=== PATIENT | female | born 1975 | race Two or more races ===

== ENCOUNTER → 2017-07-17 | Outpatient (CLI) | payer BC ==
--- NOTE | 2017-07-17 10:14 | US ---
EXAMINATION TYPE: US abdomen comp/pelvis limited DATE OF EXAM: 07/17/2017 COMPARISON: NONE CLINICAL HISTORY: R10.9 abd pain. Right sided pain, hematuria EXAM MEASUREMENTS: Liver Length: 14.8 cm Gallbladder Wall: 0.1 cm CBD: 0.5 cm Spleen: 10.3 cm Right Kidney: 9.8 x 4.7 x 5.7 cm Left Kidney: 11.0 x 4.6 x 4.3 cm Pancreas: Obscured by bowel gas Liver: Hyperechoic, slightly heterogeneous area visualized in the right lobe near the hepatic veins measuring 4.4 x 3.5 x 4.1 cm Gallbladder: wnl CBD: wnl Spleen: wnl Right Kidney: No hydronephrosis or masses seen Left Kidney: No hydronephrosis or masses seen Upper IVC: wnl Abd Aorta: wnl Bladder: wnl Bilateral Jets Seen Yes IMPRESSION: 1. Mass like area right hepatic lobe requires further evaluation with contrast-enhanced CT hemangioma protocol.
--- NOTE | 2017-07-17 10:18 | US ---
EXAMINATION TYPE: US pelvic complete DATE OF EXAM: 07/17/2017 COMPARISON: NONE CLINICAL HISTORY: R10.9 abd pain. Right sided pain TECHNIQUE: . Transabdominal sonographic images of the pelvis were acquired. Date of LMP: 07/09/2017 EXAM MEASUREMENTS: Uterus: 7.4 x 3.6 x 4.6 cm Endometrial Stripe: 0.4 cm Right Ovary: 3.0 x 1.9 x 1.8 cm Left Ovary: 2.1 x 1.3 x 2.0 cm 1. Uterus: Anteverted Heterogeneous echotexture. 2. Endometrium: wnl 3. Right Ovary: wnl 4. Left Ovary: wnl 5. Bilateral Adnexa: wnl 6. Posterior cul-de-sac: wnl IMPRESSION: No significant abnormality appreciated at this time.
== END | disposition home or self-care (01) ==
LOC: RADUSWWP 09:00
PROVIDERS: ATTEND Family Medicine
DX: R93.2 Abnormal findings on diagnostic imaging of liver and biliary tract (principal); R10.9 Unspecified abdominal pain
CPT/HCPCS: 76700; 76856; 76857

== ENCOUNTER → 2017-07-29 | Outpatient (CLI) | payer BC ==
--- NOTE | 2017-07-29 10:40 | CT ---
EXAMINATION TYPE: CT abdomen wo/w con DATE OF EXAM: 07/29/2017 COMPARISON: Ultrasound of the abdomen dated 07/17/2017 HISTORY: Hemangioma CT DLP: 2264 mGycm Automated exposure control for dose reduction was used. TECHNIQUE: Helical acquisition of images was performed from the lung bases through the top of iliac crest to include entire abdomen. CONTRAST: Performed with Oral Contrast and with IV Contrast, patient injected with 100 mL of Isovue 300. FINDINGS: LUNG BASES: No significant abnormality is appreciated. Small sliding-type hiatal hernia. LIVER/GB: Hypoattenuating mass measuring an estimated 4.6 x 5.0 cm medial aspect of the anterior segm ent right hepatic lobe is noted on unenhanced imaging. Following contrast enhancement and delayed teagan ging up to 10 minutes there is incomplete filling in with areas of peripheral enhancement. While the mass likely reflects a large hemangioma Further evaluation with MRI or nuclear medicine imaging is ad vised. There is also a enhancing mass identified within the left hepatic lobe adjacent to the falcifo rm ligament medial segment. This mass measures 3.3 x 3.2 cm and is felt to be compatible with hemangi cortez. No additional hepatic masses are seen at this time. PANCREAS: No significant abnormality is seen. SPLEEN: No significant abnormality is seen. ADRENALS: No significant abnormality is seen. KIDNEYS: No significant abnormality is seen. BOWEL: No significant abnormality is seen. LYMPH NODES: No significant abnormality is seen. OSSEOUS STRUCTURES: No significant abnormality is seen. FREE AIR: No free air is visualized. OTHER: IMPRESSION: 1. 2 hepatic masses are noted one of which is compatible with hemangioma in the second while likely r eflecting hemangioma CT findings are not diagnostic. Further evaluation with MRI or nuclear medicine imaging advised.
== END | disposition home or self-care (01) ==
LOC: RADCTMAIN 08:33
PROVIDERS: ATTEND Nurse Practitioner Adult Health
DX: K76.89 Other specified diseases of liver (principal)
CPT/HCPCS: 74170; Q9967

== ENCOUNTER → 2017-07-29 | Outpatient (CLI) | payer BC ==
--- NOTE | 2017-07-29 08:45 | MM ---
Reason for exam: screening (asymptomatic). Baseline mammogram. History: Family history of breast cancer in aunt at age 45. Physical Findings: Nurse did not find any significant physical abnormalities on exam. MG Screening Mammo w CAD Bilateral CC and MLO view(s) were taken. The breast tissue is heterogeneously dense. This may lower the sensitivity of mammography. Scattered asymmetric densities upper outer quadrant right breast and subareolar left breast may relate to superior position shadows. Further evaluation recommended as no comparisons are available. These results were verbally communicated with the patient and result sheet given to the patient on 07/29/17. ASSESSMENT: Incomplete: need additional imaging evaluation, BI-RAD 0 RECOMMENDATION: Special view mammogram of both breasts. If lesion persists on supplemental views, image directed ultrasound is recommended. [facility] will attempt to contact patient to return for supplemental views and ultrasound if indicated.
--- NOTE | 2017-07-29 08:47 | MM ---
Reason for exam: additional evaluation requested from abnormal screening. History: Family history of breast cancer in aunt at age 45. Physical Findings: Breast exam preformed at baseline screening. MG Work Up Mamm w CAD BILAT Bilateral spot compression CC, spot compression MLO, and ML view(s) were taken. The breast tissue is heterogeneously dense. This may lower the sensitivity of mammography. The subareolar focal asymmetry disperses on additional views of the left breast. ASymmetry lateral posterior right breast incompletely disperses on spot CC. No persisting abnormality seen on spot MLO or lateral views. These results were verbally communicated with the patient and result sheet given to the patient on 07/29/17. ASSESSMENT: Incomplete: need additional imaging evaluation, BI-RAD 0 RECOMMENDATION: Ultrasound of the right breast. (upper outer quadrant)
--- NOTE | 2017-07-29 08:49 | USB ---
Reason for exam: additional evaluation requested from abnormal screening. History: Family history of breast cancer in aunt at age 45. US Breast Workup Limited RT Right breast ultrasound demonstrates a 0.7 x 0.7 x 0.3cm cystic, benign lesion at 10 o'clock. Dense tissues also seen. A 6 month follow up mammogram can be performed. These results were verbally communicated with the patient and result sheet given to the patient on 07/29/17. ASSESSMENT: Probably benign, BI-RAD 3 RECOMMENDATION: Follow-up diagnostic mammogram of the right breast in 6 months.
== END | disposition home or self-care (01) ==
LOC: RADMAMWWP 07:00
PROVIDERS: ATTEND Family Medicine
DX: Z12.31 Encounter for screening mammogram for malignant neoplasm of breast (principal); R92.8 Other abnormal and inconclusive findings on diagnostic imaging of breast
CPT/HCPCS: 77066; 77067

== ENCOUNTER 2017-09-03 09:52 | Day surgery (SDC) | payer BC ==
[2017-09-01 14:36] VITALS: BMI 31.8
[~2017-09-03 09:52] MED LIST: LACTATED RINGERS 1,000 ML IV SCH
[2017-09-03] MEDS ORDERED: LIDOCAINE 1% 20 ML VIAL (10MG/ML) FOR IV START INTRADERMA ONE (10:03)
[2017-09-03 10:14] VITALS: RESP 16; TEMP 97.8
[2017-09-03] MEDS ORDERED: PROPOFOL 10 MG/ML 20 ML VIAL IV ONE (10:52)
[2017-09-03] MEDS ORDERED: fentaNYL (PF) 50 MCG/ML 2 ML AMP ONE (10:52)
[2017-09-03] MEDS ORDERED: MIDAZOLAM 2 MG/2 ML VIAL ONE (10:52)
--- NOTE | 2017-09-03 11:04 | P.PCN ---
Date of Procedure: 09/03/17 Procedure(s) Performed: BRIEF HISTORY: Patient is a 42-year-old, pleasant, white female, scheduled for an upper endoscopy as a part of evaluation of long-standing history of GERD of almost 10 years duration. She is being maintained on Prilosec 20 mg daily but for the last few months has been having severe nocturnal heartburn and hence the medications were changed to Protonix 40 mg daily and she is feeling much better. She is scheduled for an upper endoscopy to rule out complicated reflux disease.. PROCEDURE PERFORMED: Esophagogastroduodenoscopy with biopsy. PREOPERATIVE DIAGNOSIS: Long-standing history of GERD with worsening symptoms lately. IV sedation per anesthesia. PROCEDURE: After informed consent was obtained, the patient was brought into the endoscopy unit. IV sedation was administered by Anesthesia under continuous monitoring. Initially the Olympus GIF-140 video endoscope was inserted into the mouth. Esophagus intubated without any difficulty. It was gradually advanced into the stomach and duodenum and carefully examined. The bulb and the second part of the duodenum appeared normal. The scope at this time was withdrawn to the stomach, adequately insufflated with air, and upon careful examination, mucosa of the antrum, had mild gastritis and biopsies were done from this area. The body, cardia and the fundus appeared normal. There were 2 small polyps in the proximal body the stomach which was also biopsied. The scope was then withdrawn into the esophagus. Small faint a hiatal hernia noted. The GE junction was located at 34 cm from the incisors. There were linear erosions in the distal esophagus consistent with LA grade B reflux esophagitis and also a short segment of Griffin's esophagus. 5 mm proximal to the GE junction which was biopsied. The rest of the esophagus appeared normal and the patient tolerated the procedure well. IMPRESSION: 1. Mild antral gastritis and small gastric polyps. 2. LA grade B reflux esophagitis and possible short segment Griffin's esophagus. 3. Small hiatal hernia RECOMMENDATIONS: The findings of this examination were discussed with the patient as well as a family. She was advised to follow with the biopsy results. She was advised to increase the Protonix to 40 mg twice daily to be taken half hour before breakfast and dinnertime for 6 weeks following which decrease it to once daily at dinnertime as a maintenance dose. The meantime she 'll follow with the biopsy results. If there is evidence of Griffin's esophagus she can have a repeat upper endoscopy in 2-3 years.
[2017-09-03 11:24] VITALS: BP 97/55; PULSE 57
== END 2017-09-03 12:02 | disposition home or self-care (01) ==
LOC: ORWHC2ENDO 09:52
PROVIDERS: ATTEND Internal Medicine Gastroenterology
DX: K29.50 Unspecified chronic gastritis without bleeding (principal); K21.0 Gastro-esophageal reflux disease with esophagitis; K31.7 Polyp of stomach and duodenum; K44.9 Diaphragmatic hernia without obstruction or gangrene; K22.70 Barrett's esophagus without dysplasia; J45.909 Unspecified asthma, uncomplicated; Z79.899 Other long term (current) drug therapy; Z88.0 Allergy status to penicillin; Z88.2 Allergy status to sulfonamides
CPT/HCPCS: 81025; 88305; 43239; J2250; J3010; J2704

== ENCOUNTER → 2017-09-03 | Outpatient (CLI) | payer BC ==
--- NOTE | 2017-09-04 08:02 | MR ---
EXAMINATION TYPE: MR liver wo/w con DATE OF EXAM: 09/03/2017 COMPARISON: CT abdomen July 29, 2017. Ultrasound abdomen July 17, 2017 HISTORY: Abnormal findings on CT, Gadavist 10ml CONTRAST: Standard multiplanar, multisequence MRI departmental protocol utilizing 10 mL intravenous Gadavist ga dolinium contrast. FINDINGS: LIVER: Liver is normal in size without ductal dilatation. Corresponding to CT in Cou[place]ud segment 7 central posterior segment right hepatic lobe there is oval well-circumscribed lesion of T1 hypointensity and T2 hyperintensity measuring 4.4 x 4.3 cm transverse ly series 501 image 31 x 5.1 cm craniocaudal dimension coronal image 23. Lesion shows peripheral nodu lar enhancement with progressive centripetal filling. Despite not completely filling in on 10 minute delayed images similar to recent CT, imaging characteristics are consistent with benign hemangioma. Second lesion of concern is in the medial segment left hepatic lobe inferiorly, Couinaud segment 4b a nd measures 3.0 x 2.8 cm axial image 24 x 3.3 cm craniocaudal dimension coronal image 13. This lesion shows subtle T1 hypointensity and subtle T2 hyperintensity. Dynamic postcontrast images show this le aman to 2 show fairly homogeneous prominent enhancement relative to remainder of liver on initial teagan ges and becomes isodense relative to remainder of liver with delayed scar enhancement, central scar i s T2 hyperintense. No signal dropout is observed. Imaging characteristics are consistent with focal n odular hyperplasia or FNH. There is punctate T2 hyperintense lesion periphery posterior right hepatic dome seen image 34 series 501 too small to further characterize presumed benign, appears to have postcontrast enhancement sugge sting flash filling tiny hemangioma. Gallbladder is unremarkable. OTHER: Lung bases are grossly clear. The spleen, pancreas, and both adrenal glands are normal in siz e. There is no worrisome renal mass or hydronephrosis. There is no abdominal fluid or ascites. There is no suspicious small or large bowel dilatation. There is a small to moderate size hiatal hernia red emonstrated. Slight underlying scoliotic curvature and spine is again seen. IMPRESSION: Larger lesion right hepatic dome measuring 5.1 cm long axis has CT and MRI imaging characteristics co nsistent with benign hemangioma. Second lesion medial segment left hepatic lobe measuring up to 3.[address] and MRI imaging characteristics consistent with focal nodular hyperplasia or FNH.
== END | disposition home or self-care (01) ==
LOC: RADMRIMAIN 17:25
PROVIDERS: ATTEND Nurse Practitioner Adult Health
DX: D18.03 Hemangioma of intra-abdominal structures (principal); K76.9 Liver disease, unspecified
CPT/HCPCS: 74183; A9581

== ENCOUNTER → 2018-08-14 | Outpatient (CLI) | payer BC ==
--- NOTE | 2018-08-14 11:39 | NM ---
EXAMINATION TYPE: NM hepatobiliary w EF DATE OF EXAM: 08/14/2018 COMPARISON: NONE HISTORY: Right upper quadrant pain TECHNIQUE: After the intravenous administration of 5.1 mCi Tc 99m Mebrofenin hepatobiliary scintigrap hy is performed. Immediate images post injection. FINDINGS: There is satisfactory initial accumulation of tracer by the liver. The gallbladder is visualized wit hin 26 minutes. The small bowel activity is noted within 16 minutes. At one hour 8 ounces of oral e nsure plus is given to mimic CCK and gallbladder ejection fraction is calculated at 68 %, in the norm al range. Therefore there is no scintigraphic evidence of cystic or common bile duct obstruction to suggest acute cholecystitis or gallbladder dyskinesia. IMPRESSION: Exam is within normal limits.
== END | disposition home or self-care (01) ==
LOC: RADNMMAIN 08:54
PROVIDERS: ATTEND Internal Medicine Gastroenterology
DX: R10.11 Right upper quadrant pain (principal)
CPT/HCPCS: 78226; A9537

== ENCOUNTER → 2018-10-13 | Outpatient (CLI) | payer BC ==
[2018-10-13 08:58] VITALS: RESP 16; TEMP 98.3; BMI 33.7
--- NOTE | 2018-10-13 10:13 | P.HPOB ---
History of Present Illness H&P Date: 10/13/18 Chief Complaint: The patient is here for her routine gynecologic exam and ma mmogram. This is a 43-year-old with an LMP of 09/21/2018. The patient status post tubal ligation. The patient states that it's been about 11 years since her last pelvic exam. She is here to establish with this office. The patient states her menstrual periods have become a regular over the past 6 months. They were previously regular without intermenstrual bleeding. During the past 6 months she has had spotting in between periods and currently she is spotting or bleeding every day. The spotting is light but requires a pad. She did not have menstrual type flow in July or August of this year. She did have a fairly normal period. which was slightly heavy starting on 09/21/2018. She states she has had daily spotting even after the LMP. The patient is also experiencing one year of generalized abdominal pains which she describes as a spasm or "gas bubble"like discomfort. It occurs about once a month and does not seem to be associated with any particular activity. She tends to lay down on her stomach and it then will subside. The pain can be up to about 8 1/2 out of 10 when she has it but will go to 0 when it goes away. Her abdomen has felt very bloated over the past year. She is currently not having this pain. She believes she has gained about 20 to 25 pounds over the last year. She also has been having some urinary symptoms that feel like irritation and a feeling that it will be painful to urinate. She was treated for it to urinary tract infections over the past several months. She had a mammogram on 07/29/17 with right breast work-up and 6 month diagnostic follow up on the right was recommended but not done. Review of Systems She is gained about 20 to 25 pounds over the past year. She denies respiratory problems. Cardiac: she has woken up 2 times over the past month with her heart racing. She denies racing during the day. DL: she has felt very full and her abdomen has felt bloated during the past year. She also states she has had some itching on her arms which resembles the pruritus that she had during her . Past Medical History Past Medical History: Asthma, GERD/Reflux Additional Past Medical History / Comment(s): Liver hemangioma by CT scan. 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 One vaginal delivery followed by 3 sections. History of Any Multi-Drug Resistant Organisms: None Reported Past Surgical History: Section, Tubal Ligation Additional Past Surgical History / Comment(s): EGD. C/S X2. Past Anesthesia/Blood Transfusion Reactions: No Reported Reaction Past Psychological History: No Psychological Hx Reported Smoking Status: Never smoker Past Alcohol Use History: Occasional (20 per year) Past Drug Use History: None Reported Additional History: She has been since 1999. 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 - Past Family History Mother Family Medical History: Asthma, COPD Additional Family Medical History / Comment(s): Maternal aunt had breast cancer. Cousin had thyroid cancer. Father Family Medical History: Thyroid Disorder Medications and Allergies Home Medications Medication Instructions Recorded Confirmed Type Albuterol Inhaler [Ventolin Hfa 1 - 2 puff INHALATION RT-Q6H PRN 09/01/17 10/13/18 History Inhaler] Pantoprazole Sodium [Protonix] 40 mg PO DAILY 09/01/17 10/13/18 History Allergies Allergy/AdvReac Type Severity Reaction Status Date / Time amoxicillin Allergy Rash/Hives Verified 10/13/18 08:58 nitrofurantoin Allergy Nausea & Unverified 10/13/18 08:58 [From Macrobid] Vomiting Sulfa (Sulfonamide Allergy Rash/Hives Verified 10/13/18 08:58 Antibiotics) Exam Vital Signs Temp Pulse Resp BP Pulse Ox 10/13/18 08:50 98.3 F 69 16 97/63 98 Intake and Output 10/12/18 10/13/18 10/13/18 22:59 06:59 14:59 Other: Weight 94.801 kg Height 5'6", weight 209 pounds, BMI 33.7. This is a well-developed well-nourished heavyset white female who is alert and oriented times 3 in no acute distress. HEENT: Within normal limits. NECK: Supple without mass or thyromegaly. CHEST AND LUNGS: Clear to auscultation. HEART: Regular rate and rhythm. BREASTS: Are without mass or discharge. AXILLARY EXAM: Negative for adenopathy. BACK: Negative for CVA tenderness. ABDOMEN: Soft, mildly obese, nontender, without palpable masses. The abdomen is not distended. PELVIC EXAM: Normal external genitalia. Cervix and vagina appear normal with min imal atrophy. There is no unusual discharge. There is no evidence of prolapse. The uterus is midposition, multiparous, nongravid size and nontender. There are no palpable adnexal masses or tenderness. RECTAL EXAM: rectovaginal exam is negative for mass or tenderness and is negative for occult blood. EXTREMITIES: Nontender. IMPRESSION: 1. 43-year-old female with a 6 month history of irregular menstrual periods and dysfunctional urine bleeding. During the past 6 months she has had spotting most days of the month. 2. Intermittent generalized abdominal pains over the past one year. They occur about once a month and feel like spasms. This is also associated with abdominal bloating. Differential diagnosis will include G.I. gas, ovarian mass, uterine fibroids, and non-gynecologic problem. 3. Urinary symptoms described as a bladder irritation with a feeling that urination will be painful. PLAN: 1. Pap smear was performed. 2. Self breast awareness was discussed with the patient. 3. Screening mammogram will be done today. 4. Urinalysis and culture with sensitivity has been obtained. 5. The patient will be scheduled for a pelvic ultrasound. 6. She will follow-up with her primary care physician for her arm pruritus and other ongoing medical issues including the liver hemangioma. 7. She did have a CT scan of the abdomen on 07/29/2017 and this is where the liver hemangiomas were noted. 8. The patient will be scheduled for an endometrial biopsy. We will consider cyclic progestin therapy if the endometrial biopsy is benign. 9. She will also return in one year and PRN. Total time spent with patient 50 minutes.
--- NOTE | 2018-10-13 10:57 | MM ---
Reason for exam: additional evaluation requested from prior study. Last mammogram was performed 1 year and 2 months ago. History: Family history of breast cancer in aunt at age 45. Physical Findings: Dr. Gomez did breast exam. MG Diagnostic Mammo w CAD AYDEN Bilateral CC and MLO view(s) were taken. Prior study comparison: July 29, 2017, bilateral MG work up mamm w CAD BILAT. July 29, 2017, bilateral MG screening mammo w CAD. The breast tissue is heterogeneously dense. This may lower the sensitivity of mammography. The left retroareolar focal asymmetry is unchanged as is the right upper outer quadrant posterior depth focal asymmetry. These results were verbally communicated with the patient and result sheet given to the patient on 10/13/18. ASSESSMENT: Probably benign, BI-RAD 3 RECOMMENDATION: Follow-up diagnostic mammogram of both breasts in 1 year.
[2018-10-13 13:02] VITALS: BP 108/70; PULSE 63
--- NOTE | 2018-10-13 13:12 | P.PCN ---
Date of Procedure: 10/13/18 Preoperative Diagnosis: Dysfunctional uterine bleeding Postoperative Diagnosis: Dysfunctional uterine bleeding Procedure(s) Performed: Endometrial biopsy Anesthesia: none Surgeon: Logan Gomez Estimated Blood Loss (ml): 1 Pathology: other (Endometrial tissue) Condition: stable Disposition: same day Indications for Procedure: This was a 43-year-old with an LMP of 09/21/2018. Over the last 6 months that she has had menstrual irregularity with spotting most days between periods. Please see today's history and physical for additional details. Operative Findings: The uterus sounded to 9 cm. Moderate endometrial tissue was obtained. Description of Procedure: The endometrial biopsy procedure was described to the patient. All of her questions were answered. The patient was placed in the lithotomy position. Bimanual examination was performed. The uterus is mid-positioned and is multiparous nongravid size. The speculum was inserted and the cervix and vagina were prepped with betadine solution. A Allys clamp was used to grasp the anterior lip of the cervix. The endometrial biopsy instrument could not pass the endocervix, then the Allys Clamp was placed on the posterior lip of the cervix and the 3 mm endometrial biopsy instrument was then placed to the fundus without difficulty. The uterus sounded to 9 cm. A [id number] rotating motion was used and a moderate amount of tissue filled the instrument and sent for pathological examination. The procedure was repeated times 1 to obtain additional tissue and a moderate amount was again obtained, but did not fill the biopsy instrument. All the tissue was sent for pathological evaluation. The patient tolerated the procedure well. There were no complications. The post procedure vitals are as follows: blood pressure 108/70. pulse 69, pulse oximeter 100%. Post procedure instructions were given to the patient.
[2018-10-13 16:24] LABS: Appearance,Urine Clear (Clear); Bacteria,Urine Rare /hpf; Bilirubin,Urine Negative (Negative); Blood,Urine Small (Negative); Color,Urine Yellow; Glucose,Urine (UA) Negative (Negative); Ketones,Urine Negative (Negative); Leukocyte Esterase,Urine Negative (Negative); Mucus,Urine Rare /hpf; Nitrite,Urine Negative (Negative); Protein,Urine Negative (Negative); RBC,Urine 5 /hpf (0-5); Specific Gravity,Urine 1.014 (1.001-1.035); Squamous Epithelial Cell,Urine 3 /hpf (0-4); Urobilinogen,Urine <2.0 mg/dL (<2.0); WBC,Urine <1 /hpf (0-5)
--- NOTE | 2018-10-14 12:00 | P.PN ---
Progress Note - Text Progress Note Date: 10/14/18 Urinalysis from yesterday showed few RBCs, but negative for leukocyte esterase. Will await culture. A message was left on the patients voicemail with this result and plan. She was instructed to call if questions or problems.
== END ==
LOC: WWCWWP 08:42
PROVIDERS: ATTEND Obstetrics & Gynecology
DX: R92.8 Other abnormal and inconclusive findings on diagnostic imaging of breast (principal)
CPT/HCPCS: 77066; 81001; 87086

== ENCOUNTER → 2018-10-22 | Outpatient (CLI) | payer BC ==
--- NOTE | 2018-10-22 15:23 | US ---
EXAMINATION TYPE: US pelvic complete DATE OF EXAM: 10/22/2018 COMPARISON: US 2018 CLINICAL HISTORY: R10.84 Generalized abdominal painN93.8. Intermittent pelvic pain x 6 months, gotten worse recently, irregular heavy periods, 3, para 3, history of 2 c-sections and tubal ligati on TECHNIQUE: Transabdominal sonographic images of the pelvis were acquired. Date of LMP: 10/17/2018 EXAM MEASUREMENTS: Uterus: 9.2 x 4.4 x 5.2 cm Endometrial Stripe: 0.5 cm Right Ovary: 2.3 x 1.4 x 2.0 cm Left Ovary: 2.9 x 1.9 x 2.8 cm 1. Uterus: anteverted 2. Endometrium: wnl 3. Right Ovary: wnl 4. Left Ovary: 1.4 x 1.8cm follicle area 5. Bilateral Adnexa: wnl 6. Posterior cul-de-sac: wnl IMPRESSION: Follicular change of the left ovary appears physiologic. No suspicious adnexal lesion nor abnormal endometrial thickening.
== END | disposition home or self-care (01) ==
LOC: RADUSWWP 14:55
PROVIDERS: ATTEND Obstetrics & Gynecology
DX: R10.9 Unspecified abdominal pain (principal); R14.0 Abdominal distension (gaseous)
CPT/HCPCS: 76856

== ENCOUNTER → 2020-12-12 | Outpatient (CLI) | payer BC ==
[2020-12-12 11:23] LABS: Partial Thromboplastin Time 24.6 sec (22.0-30.0); Prothrombin Time 10.5 sec (9.0-12.0)
[2020-12-12 14:53] LABS: HCT 38.6 % (37.2-46.3); MCH 28.4 pg (27.0-32.0); MCHC 31.1 g/dL (32.0-37.0); MCV 91.3 fL (80.0-97.0); Platelet Count 271 X 10*3/uL (140-440); RBC 4.23 X 10*6/uL (4.10-5.20); RDW 14.2 % (11.5-14.5); WBC 4.23 X 10*3/uL (4.50-10.00)
[2020-12-12 18:53] LABS: Hemoglobin A1C 5.6 % (4.0-6.0)
[2020-12-12 22:01] LABS: % Iron Saturation 12.07 (12.00-45.00); African American GFR (CKD) 119.6 (60.0-200.0); Albumin 4.7 g/dL (3.80-4.90); Albumin/Globulin Ratio 1.96 (1.60-3.17); Anion Gap 10.8 mmol/L (4.00-12.00); BUN/Creat Ratio 17.14 Ratio (12.00-20.00); Calcium 9.6 mg/dL (8.7-10.3); Carbon Dioxide 22.2 mmol/L (21.6-31.8); Chol/HDL Ratio 3.27; Globulin 2.4 g/dL (1.6-3.3); LDL Cholesterol,Calculated 116.2 mg/dL (0.0-131.0); Non-African American GFR(CKD) 103.2 (60.0-200.0); Phosphorus 3.4 mg/dL (2.4-5.1); Potassium 4.1 mmol/L (3.5-5.5); Total Bilirubin 0.5 mg/dL (0.3-1.2); Total Protein 7.1 g/dL (6.2-8.2); VLDL Calculation 19.8 mg/dL (5.00-40.00)
[2020-12-12 22:12] LABS: Folate, Serum 9.8 ng/mL
[2020-12-12 23:21] LABS: Ferritin 4.5 ng/mL (10.0-291.0)
[2020-12-13 13:00] LABS: Zinc, Serum 83 ug/dL (60-130)
[2020-12-14 04:42] LABS: Vit B1(Thiamine) 50 ug/L (38-122)
[2020-12-14 04:56] LABS: Vitamin A 39 ug/dL (38-106)
== END | disposition home or self-care (01) ==
LOC: LABWHC1 09:52
PROVIDERS: ATTEND Surgery Plastic and Reconstructive Surgery
DX: E66.01 Morbid (severe) obesity due to excess calories (principal); E21.1 Secondary hyperparathyroidism, not elsewhere classified; E89.1 Postprocedural hypoinsulinemia; D50.8 Other iron deficiency anemias; E44.0 Moderate protein-calorie malnutrition; E55.9 Vitamin D deficiency, unspecified; K74.1 Hepatic sclerosis; N19 Unspecified kidney failure; K50.90 Crohn's disease, unspecified, without complications
CPT/HCPCS: 36415; 80053; 80061; 82306; 82525; 82607; 82728; 82746; 83036; 83540; 83550; 83735; 83970; 84100; 84134; 84255; 84425; 84443; 84590; 84630; 85027; 85610; 85730; 93005

== ENCOUNTER → 2021-01-09 | Outpatient (CLI) | payer BC ==
--- NOTE | 2021-01-09 10:56 | MM ---
Reason for exam: additional evaluation requested from prior study. Last mammogram was performed 2 years and 3 months ago. History: Family history of breast cancer in aunt at age 45. Physical Findings: Nurse did not find any significant physical abnormalities on exam. MG Diagnostic Mammo w CAD AYDEN Bilateral CC and MLO view(s) were taken. Prior study comparison: October 13, 2018, bilateral MG diagnostic mammo w CAD AYDEN. July 29, 2017, bilateral MG work up mamm w CAD BILAT. The breast tissue is heterogeneously dense. This may lower the sensitivity of mammography. Stable benign calcifications. No significant new findings when compared with previous films. These results were verbally communicated with the patient and result sheet given to the patient on 01/09/21. ASSESSMENT: Benign, BI-RAD 2 RECOMMENDATION: Routine screening mammogram of both breasts in 1 year.
== END | disposition home or self-care (01) ==
LOC: RADMAMWWP 10:13
PROVIDERS: ATTEND Surgery Plastic and Reconstructive Surgery
DX: Z12.31 Encounter for screening mammogram for malignant neoplasm of breast (principal); R92.8 Other abnormal and inconclusive findings on diagnostic imaging of breast
CPT/HCPCS: 77066

== ENCOUNTER → 2021-04-10 | Outpatient (CLI) | payer BC ==
[2021-04-10 17:03] LABS: HCT 39.7 % (34.0-46.0); HGB 12.6 gm/dL (11.4-16.0); MCH 29.4 pg (25.0-35.0); MCHC 31.9 g/dL (31.0-37.0); MCV 92.3 fL (80.0-100.0); Platelet Count 268 k/uL (150-450); RDW 13.9 % (11.5-15.5); WBC 5.5 k/uL (3.8-10.6)
== END | disposition home or self-care (01) ==
LOC: LABPAT 16:25
PROVIDERS: ATTEND Surgery Plastic and Reconstructive Surgery
DX: Z01.812 Encounter for preprocedural laboratory examination (principal)
CPT/HCPCS: 85027

== ENCOUNTER 2021-05-03 12:22 | Day surgery (SDC) | payer BC ==
[2021-05-01 13:23] VITALS: BMI 32.4
--- NOTE | 2021-05-03 08:08 | P.GSHP ---
History of Present Illness H&P Date: 05/03/21 CHIEF COMPLAINT: Cholecystitis HISTORY OF PRESENT ILLNESS: The patient is a 46-year-old female who presents with history of epigastric including right upper quadrant abdominal pain. She underwent diagnostic studies for her gallbladder. Separately her clinical picture was consistent with cholecystitis. Now she presents for surgical intervention. PAST MEDICAL HISTORY: Please see list PAST SURGICAL HISTORY: Please see list MEDICATIONS: Please see list ALLERGIES: Please see list SOCIAL HISTORY: Please see list FAMILY HISTORY: Please see list REVIEW OF ORGAN SYSTEMS: CONSTITUTIONAL: No reports of fevers or chills. HEENT: Denies any troubles with the vision or hearing. ENDOCRINE: No reports of hypothyroidism. No diabetes. RESPIRATORY: No recent pneumonias. CARDIOVASCULAR: Denies chest pain or palpitations GI: No blood in stools or constipation. MUSCULOSKELETAL: Has occasional joint pain including back pain. NEURO: No seizure disorders or headaches. No recent stroke. PSYCH: No depression or suicidal ideation. GENITOURINARY: No active blood in urine. No urinary hesitancy. HEMATOLOGIC: No personal or family history of DVTs or pulmonary emboli. SKIN: No skin cancer. PHYSICAL EXAM: VITAL SIGNS: Afebrile vital signs stable GENERAL: Well-developed pleasant in no acute distress. HEENT: No scleral icterus. Extraocular movements grossly intact. Moist buccal mucosa. NECK: Supple without lymphadenopathy. CHEST: Unlabored respirations. Equal bilateral excursions. CARDIOVASCULAR: Regular rate regular rhythm rhythm. Distal 2+ pulses. ABDOMEN: Soft, nondistended. Tender along the epigastrium and right upper quadrant. MUSCULOSKELETAL: No clubbing, cyanosis, or edema. NEURO: Cranial nerves II to XII within normal limits. No focal or lateralizing signs. PSYCH: Alert and oriented to person, place and time. SKIN: Well-perfused good skin turgor. ASSESSMENT: 1. Epigastric and right upper quadrant abdominal pain 2. Chronic cholecystitis 3. Symptomatic gallstones. PLAN: 1. Will need a robotic cholecystectomy possible open. Benefits and risks were described. 2. Heparin for DVT prophylaxis 5000 units. 3. Antibiotic prophylaxis. Past Medical History Past Medical History: Asthma, GERD/Reflux Additional Past Medical History / Comment(s): FEELING PRESSURE IN UPPER ABD, BLOATING. MASS FOUND ON LIVER-PHYSICIAN WATCHING. History of Any Multi-Drug Resistant Organisms: None Reported Past Surgical History: Section, Tubal Ligation Additional Past Surgical History / Comment(s): EGD. Section X2. Past Anesthesia/Blood Transfusion Reactions: No Reported Reaction Past Psychological History: No Psychological Hx Reported Smoking Status: Never smoker Past Alcohol Use History: Occasional Past Drug Use History: None Reported - Past Family History Mother Family Medical History: Asthma, COPD Additional Family Medical History / Comment(s): Maternal aunt had breast cancer. Cousin had thyroid cancer. Father Family Medical History: Thyroid Disorder Medications and Allergies Home Medications Medication Instructions Recorded Confirmed Type Famotidine [Pepcid] 20 mg PO BID 04/10/21 05/01/21 History Allergies Allergy/AdvReac Type Severity Reaction Status Date / Time amoxicillin Allergy Rash/Hives Verified 05/01/21 13:14 nitrofurantoin Allergy Nausea & Unverified 05/01/21 13:14 [From Macrobid] Vomiting Sulfa (Sulfonamide Allergy Rash/Hives Verified 05/01/21 13:14 Antibiotics)
[~2021-05-03 12:22] MED LIST changes: +ACETAMINOPHEN TAB 500 MG TAB PO STA; +DEXAMETHASONE SOD PHOSPHATE 4 MG/ML 1 ML VIAL IV ONE; +GABAPENTIN 300 MG CAP PO STA; +HEPARIN SODIUM,PORCINE/PF 5,000 UNIT/0.5 ML SYRINGE SQ PRN; +HYDROmorphone 0.5 MG/0.5 ML SYRINGE IVP PRN; +INDOCYANINE GREEN 25 MG VIAL IV STA; +MELOXICAM 7.5 MG TAB PO SCH; +ONDANSETRON 4 MG/2 ML VIAL IVP ONE; +SCOPOLAMINE 1.5MG/72HR PATCH TRANSDERM STA
[2021-05-03 12:51] VITALS: RESP 16
[2021-05-03 13:08] LABS: Basophils # (A) 0.1 k/uL (0-0.2); Basophils % (A) 1 %; Eosinophils # (A) 0.2 k/uL (0-0.7); Eosinophils % (A) 3 %; HCT 38.9 % (34.0-46.0); HGB 12.9 gm/dL (11.4-16.0); Lymphocytes # (A) 1.4 k/uL (1.0-4.8); Lymphocytes % (A) 27 %; MCHC 33.2 g/dL (31.0-37.0); MCV 90.2 fL (80.0-100.0); Mean Platelet Volume 7.9; Monocytes # (A) 0.4 k/uL (0-1.0); Monocytes % (A) 7 %; Neutrophils # (A) 2.9 k/uL (1.3-7.7); Neutrophils % (A) 59 %; Platelet Count 273 k/uL (150-450); RBC 4.32 m/uL (3.80-5.40); RDW 13.5 % (11.5-15.5)
[2021-05-03] MEDS ORDERED: fentaNYL (PF) 50 MCG/ML 2 ML AMP ONE (13:41)
[2021-05-03] MEDS ORDERED: MIDAZOLAM 2 MG/2 ML VIAL ONE (13:41)
[2021-05-03] MEDS ORDERED: LIDOCAINE 1% INJ 10MG/ML (20 ML MDV) ONE (13:41)
[2021-05-03] MEDS ORDERED: NEOSTIGMINE 1 MG/ML 10 ML VIAL ONE (13:41)
[2021-05-03] MEDS ORDERED: GLYCOPYRROLATE 0.2 MG/ML 2 ML VIAL ONE (13:41)
[2021-05-03] MEDS ORDERED: PROPOFOL 10 MG/ML 20 ML VIAL IV ONE (13:41)
[2021-05-03] MEDS ORDERED: INDOCYANINE GREEN 25 MG VIAL IV ONE (13:41)
[2021-05-03] MEDS ORDERED: ROCURONIUM 10 MG/ML (5 ML VIAL) IV ONE (13:41)
[2021-05-03] MEDS ORDERED: BUPIVACAIN-EPI 0.25%-1:200,000 30 ML VIAL SQ ONE ×2 (13:57→14:00)
[2021-05-03] MEDS ORDERED: LACTATED RINGERS 1,000 ML IV ONE (14:32)
[2021-05-03 14:56] VITALS: TEMP 98.7
[2021-05-03 16:55] VITALS: BP 118/66; PULSE 58
--- NOTE | 2021-05-09 11:25 | P.OP ---
Date of Procedure: 05/03/21 Description of Procedure: SURGEON: LINDA HA MD PREOPERATIVE DIAGNOSES: 1. Chronic cholecystitis 2. Gastroesophageal reflux disease POSTOPERATIVE DIAGNOSES: 1. Chronic cholecystitis 2. Gastroesophageal reflux disease 3. Peritoneal adhesions, right upper quadrant, severe OPERATION: 1. Robotic-assisted da Leslie Xi laparoscopic lysis of adhesions, 30 minutes 2. Robotic-assisted da Leslie Xi laparoscopic cholecystectomy, multiport with FIREFLY ESTIMATED BLOOD LOSS: 5 mL. SPECIMENS REMOVED: Gallbladder. COMPLICATIONS: None. OPERATIVE FINDINGS: 1. Scarring over entire gallbladder with peritoneal adhesions, pericholecystic with features of chronic cholecystitis INDICATIONS: The patient is a 46-year-old female who presents with symptomatic gallstones. Robotic assisted laparoscopic approach was described. Benefits and risks of the procedure including but not limited to bleeding, infection, injury to the biliary tree was described. Informed consent was obtained. DESCRIPTION OF PROCEDURE: Patient was brought to the operating room, placed in supine position. After general induction, the abdomen had been prepped and draped in standard sterile fashion. The robotic da Leslie XI system was primed. After a timeout protocol was performed, the patient had been prepped and draped in standard sterile fashion. The patient was injected with indocyanine green. A 5 mm 0 degrees laparoscopic trocar entry was performed along the left upper quadrant. The abdomen insufflated to 15 mmHg pressure which was tolerated well. Diagnostic laparoscopy demonstrated no injury to bowel viscera or mesentery. The liver surface was unremarkable. Next, two 8 mm robotic ports were placed along the right upper abdomen. The camera 8-mm port was maintained along the epigastrium. Another 8 mm port was placed along the left upper abdominal wall after exchanging the 5 mm port. Please note that the ports were placed at least 10 to 15 cm away from the target anatomy of the gallbladder. The robot was docked along the left lateral abdomen. The patient was repositioned in reverse Trendelenburg position. Using a grasper for arm 3, a grasper for arm 4, including hook cautery for arm 1, the robotic system was docked and primed as described. Instruments were interchanged by the home health assistant including hook cautery, Bovie cautery and clip appliers. I had sat at the console. The gallbladder was scarred with peritoneal adhesions. Lysis of adhesions was performed to free the gallbladder from the surrounding tissues for over 30 minutes. Next attention was brought to the infundibulum and cystic structures. The infundibulum and cystic duct were dissected free from surrounding tissues. The cystic duct was isolated. FIREFLY was used to identify the cystic artery and cystic structures. A critical view of safety was obtained. Large PLASTIC clips were used throughout the entire case. Using a clip satellite communications engineer, 2 clips were placed at the junction of the infundibulum and cystic duct. The cystic duct was divided between clips. Next, the cystic artery was similarly clipped and cauterized. Electro-Bovie cautery was used to remove the gallbladder from the hepatic fossa. Hemostasis was checked and found to be adequate. The robot was undocked. I re-scrubbed into the case. Using a 10 mm Endo Catch bag via the left upper quadrant incision, the specimen was removed from the abdominal cavity. All pneumoperitoneum instruments were evacuated from the abdominal cavity. The incisions were reapproximated using 4-0 Monocryl in an interrupted subcuticular fashion. Fascial defects were less than 8 mm in size. Please note along the trocar sites, local anesthetic was placed as a field block prior to insertion of all instruments. Liquid glue was applied to the skin. At the end of the procedure needle, sponge, and instrument count had been verified correct by the surgical consultant. The patient was transferred to postanesthesia care unit in stable condition. Intraoperative films were shared with the patient's family. Plan - Discharge Summary Discharge Rx Participant: No New Discharge Prescriptions: New Simethicone [Gas-X] 125 mg PO AC-TID PRN #20 capsule PRN Reason: Pain Ibuprofen [Motrin] 600 mg PO Q8HR PRN #30 tab PRN Reason: Pain Acetaminophen Tab [Tylenol Tab] 1,000 mg PO Q6HR PRN #30 tablet PRN Reason: Pain Continue Famotidine [Pepcid] 20 mg PO BID Discharge Medication List Famotidine [Pepcid] 20 mg PO BID 04/10/21 [History] Acetaminophen Tab [Tylenol Tab] 1,000 mg PO Q6HR PRN #30 tablet 05/03/21 [Rx] Ibuprofen [Motrin] 600 mg PO Q8HR PRN #30 tab 05/03/21 [Rx] Simethicone [Gas-X] 125 mg PO AC-TID PRN #20 capsule 05/03/21 [Rx] Follow up Appointment(s)/Referral(s): Linda Ha MD [STAFF PHYSICIAN] - 05/09/21 (Telehealth available) Patient Instructions/Handouts: *[facility] - Laparoscopic Cholecystectomy Discharge Instructions, *[facility] - Managing Your Pain After Surgery Without Opioids, *[facility] - (Anesthesia) Discharge Instructions Outpatient Surgery, *[facility] - Scopalamine Patch Instructions, Low Fat Diet (DC) Activity/Diet/Wound Care/Special Instructions: Recommend low-fat diet for the next 2 days. No lifting over 10 pounds in 2 weeks until May 17, 2021. May shower. No bath tub soaks for two weeks until May 17, 2021. Diet as tolerated. Use Tylenol, simethicone and ibuprofen or Aleve scheduled for the next 24-48 hours for best pain relief. Use ice along incisions for today to prevent swelling. Discharge Disposition: HOME SELF-CARE
== END 2021-05-03 17:38 | disposition home or self-care (01) ==
LOC: OR 12:22
PROVIDERS: ATTEND Surgery Plastic and Reconstructive Surgery
DX: K81.1 Chronic cholecystitis (principal); K21.9 Gastro-esophageal reflux disease without esophagitis; K66.0 Peritoneal adhesions (postprocedural) (postinfection)
CPT/HCPCS: 47562; 49329; S2900; 81025; 85025; 88304

== ENCOUNTER → 2022-08-20 | Day surgery (SDC) | payer BC ==
[~2022-08-20] MED LIST changes: -ACETAMINOPHEN TAB 500 MG TAB PO STA; -DEXAMETHASONE SOD PHOSPHATE 4 MG/ML 1 ML VIAL IV ONE; -GABAPENTIN 300 MG CAP PO STA; -HEPARIN SODIUM,PORCINE/PF 5,000 UNIT/0.5 ML SYRINGE SQ PRN; -HYDROmorphone 0.5 MG/0.5 ML SYRINGE IVP PRN; -INDOCYANINE GREEN 25 MG VIAL IV STA; +LIDOCAINE 1% (10MG/ML) FOR IV START INTRADERMA PRN; +LIDOCAINE 2% INJ 20 MG/ML (2 ML VIAL) ONE; -MELOXICAM 7.5 MG TAB PO SCH; +MIDAZOLAM 2 MG/2 ML VIAL ONE; -ONDANSETRON 4 MG/2 ML VIAL IVP ONE; +PROPOFOL 10 MG/ML 20 ML VIAL IV ONE; -SCOPOLAMINE 1.5MG/72HR PATCH TRANSDERM STA; +fentaNYL (PF) 50 MCG/ML 2 ML AMP ONE
--- NOTE | 2022-08-20 09:02 | P.GSHP ---
History of Present Illness H&P Date: 08/20/22 CHIEF COMPLAINT: GERD and colon screen HISTORY OF PRESENT ILLNESS: The patient is a 47-year-old female who presents with gastroesophageal reflux disease and need for colon screen. Upper and lower endoscopy were offered for further evaluation and management. PAST MEDICAL HISTORY: Please see list. PAST SURGICAL HISTORY: Please see list. MEDICATIONS: Please see list. ALLERGIES: Please see list. SOCIAL HISTORY: No illicit drug use FAMILY HISTORY: No reports of Crohn disease or ulcerative colitis. REVIEW OF ORGAN SYSTEMS: CONSTITUTIONAL: No reports of fevers or chills. GI: Denies any blood in stools or constipation. PHYSICAL EXAM: VITAL SIGNS: Stable GENERAL: Well-developed pleasant in no acute distress. HEENT: No scleral icterus. Extraocular movements grossly intact. Moist buccal mucosa. NECK: Supple without lymphadenopathy. CHEST: Unlabored respirations. Equal bilateral excursions. CARDIOVASCULAR: Regular rate and rhythm. Distal 2+ pulses. ABDOMEN: Soft, nondistended. MUSCULOSKELETAL: No clubbing, cyanosis, or edema. ASSESSMENT: 1. Gastroesophageal reflux disease 2. Colon screen. PLAN: 1. Recommend proceeding with an upper and lower endoscopy Past Medical History Past Medical History: Asthma, GERD/Reflux Additional Past Medical History / Comment(s): FEELING PRESSURE IN UPPER ABD, BLOATING. MASS FOUND ON LIVER-PHYSICIAN WATCHING. reflux for 10 yrs. History of Any Multi-Drug Resistant Organisms: None Reported Past Surgical History: Section, Cholecystectomy, Tubal Ligation Additional Past Surgical History / Comment(s): EGD. Section X2. Past Anesthesia/Blood Transfusion Reactions: No Reported Reaction Smoking Status: Never smoker - Past Family History Mother Family Medical History: Asthma, COPD Additional Family Medical History / Comment(s): Maternal aunt had breast cancer. Cousin had thyroid cancer. Father Family Medical History: Thyroid Disorder Medications and Allergies Home Medications Medication Instructions Recorded Confirmed Type Unk Albuterol Inhaler 2 puff INHALATION DIRECTED PRN 08/15/22 08/15/22 History Allergies Allergy/AdvReac Type Severity Reaction Status Date / Time amoxicillin Allergy Rash/Hives Verified 08/15/22 13:56 nitrofurantoin Allergy Nausea & Verified 08/15/22 13:57 [From Macrobid] Vomiting Sulfa (Sulfonamide Allergy Rash/Hives Verified 08/15/22 13:56 Antibiotics)
[2022-08-20 10:32] VITALS: RESP 16; TEMP 97.8
--- NOTE | 2022-08-20 11:46 | P.PCN ---
Date of Procedure: 08/20/22 Description of Procedure: PREOPERATIVE DIAGNOSIS: Colonoscopy screening. POSTOPERATIVE DIAGNOSIS: Colonoscopy screening. Cecal volvulus OPERATION: Colonoscopy to the ascending colon SURGEON: Linda Ha MD. ANESTHESIA: MAC. INDICATIONS: The patient is a 47-year-old female who presents for colonoscopy screening. This is a first screening. Benefits and risks were described and informed consent was obtained. DESCRIPTION OF PROCEDURE: The patient had undergone Sutab prep. The patient had been brought into the operating room and laid in the left lateral decubitus position. After adequate intravenous sedation, the rectum was examined with 2% lidocaine jelly. No external hemorrhoids were encountered. The rectal tone was within normal limits. No lesions were palpated in the rectal vault. An Olympus colonoscope was advanced. The sigmoid was highly redundant prohibiting advancements of the cecum. Swirl in the ascending colon was found questionable for cecal volvulus. The prep was excellent. No scattered diverticulosis was encountered. No colonic polyps were found. No evidence of focal colitis was found. Retroflexion of the scope demonstrated grade 2 internal hemorrhoids without active bleeding or inflammation. The colon was desufflated. The patient had tolerated the procedure well. Withdrawal time was over 6 minutes. FINDINGS: Aronchick preparation quality scale 1 (1-5) Internal hemorrhoids, grade 1 No external prolapsed hemorrhoids. No arteriovenous malformations. No adenomatous polyps. No focal colitis. Colonoscopy limited to ascending colon RECOMMENDATIONS: 1. Rrecommend barium enema 2. Repeat colonoscopy 2027. Plan - Discharge Summary Discharge Rx Participant: No New Discharge Prescriptions: Continue Unk Albuterol Inhaler 2 puff INHALATION DIRECTED PRN PRN Reason: Wheezing Discharge Medication List Unk Albuterol Inhaler 2 puff INHALATION DIRECTED PRN 08/15/22 [History] Follow up Appointment(s)/Referral(s): Linda Ha MD [STAFF PHYSICIAN] - 09/02/22 9:30 am Patient Instructions/Handouts: Hiatal Hernia (DC), *[facility] - (Anesthesia) Endoscopy Discharge Instructions, Colonoscopy (DC), GERD (Gastroesophageal Reflux Disease) (DC) Activity/Diet/Wound Care/Special Instructions: Repeat colonoscopy years2027 Discharge Disposition: HOME SELF-CARE
[2022-08-20 12:36] VITALS: BP 101/56; PULSE 54
--- NOTE | 2022-08-20 14:23 | FL ---
EXAMINATION TYPE: FL barium enema DATE OF EXAM: 08/20/2022 COMPARISON: CT abdomen pelvis 06/24/2022 HISTORY: Incomplete colonoscopy, scoped the descending colon, the surface thecal volvulus. TECHNIQUE: A single contrast barium enema study is performed. A total of 55 seconds of fluoroscopic time was utilized during procedure and 42 images obtained. Total DAP not reported. FINDINGS: Driver License Examiner view of the abdomen shows gas filled distended large bowel from recent colonoscopy. No pneumoperitoneum identified. No evidence of any mass or polyp, obstructing or constricting lesion throughout the colon. No signif icant diverticular disease is noted. Redundant sigmoid colon identified. The cecum fills on the postevacuation images and appears unremarkable. IMPRESSION: Normal barium enema study.
--- NOTE | 2022-08-21 23:49 | P.PCN ---
Date of Procedure: 08/20/22 Description of Procedure: PREOPERATIVE DIAGNOSIS: Gastroesophageal reflux disease. POSTOPERATIVE DIAGNOSIS: Gastroesophageal reflux disease with erosive esophagitis Crystal's esophagus Diaphragmatic hiatal hernia OPERATION: Esophagogastroduodenoscopy with biopsies along antrum and duodenum, esophagus SURGEON: Linda Ha MD ANESTHESIA: MAC. INDICATIONS: The patient is a 44-year-old female who presents with reflux disease. Benefits and risks of the procedure were described. Informed consent was obtained. DESCRIPTION: The patient was brought into the endoscopy suite and laid in the left lateral decubitus position. An Olympus gastroscope was passed along the posterior oropharynx down to the distal esophagus where the squamocolumnar junction was encountered at 40 cm from the incisors. The stomach was entered and no bile reflux was found. Additional findings are listed below. Biopsies with cold forceps were obtained of the antrum. The first through third portion of the duodenum was examined. Retroflexion of the scope confirmed Hill grade 3 lower esophageal valve. The squamocolumnar junction demonstrated LA grade B erosive esophagitis. The stomach was desufflated. The patient tolerated the procedure well. FINDINGS: Squamocolumnar junction 33 cm from the incisors. Diaphragmatic hiatus at 38 cm. Crystal's esophagus, 33 to 36 cm of the incisors. Hiatal hernia, 5 cm Hill grade 4 lower esophageal valve. LA grade D erosive esophagitis with biopsies obtained Biopsies obtained of duodenum Chronic gastritis with biopsies obtained RECOMMENDATIONS: Repeat upper endoscopy in 3 years, 2025 Continue antacids indefinitely due to crystal's esophagus and increased risk of malignancy Recommend hiatal hernia repair
== END | disposition home or self-care (01) ==
LOC: ORWHC2ENDO 10:07
PROVIDERS: ATTEND Surgery Plastic and Reconstructive Surgery
DX: Z12.11 Encounter for screening for malignant neoplasm of colon (principal); K22.70 Barrett's esophagus without dysplasia; K21.00 Gastro-esophageal reflux disease with esophagitis, without bleeding; K44.9 Diaphragmatic hernia without obstruction or gangrene; K56.2 Volvulus; J45.909 Unspecified asthma, uncomplicated; K21.9 Gastro-esophageal reflux disease without esophagitis; Z90.49 Acquired absence of other specified parts of digestive tract; Z98.51 Tubal ligation status; Z98.891 History of uterine scar from previous surgery; Z80.3 Family history of malignant neoplasm of breast; Z83.49 Family history of other endocrine, nutritional and metabolic diseases; Z79.51 Long term (current) use of inhaled steroids; Z88.2 Allergy status to sulfonamides; Z88.1 Allergy status to other antibiotic agents; Z79.899 Other long term (current) drug therapy
CPT/HCPCS: 81025; 88305; 74270; 45378; 43239; J2250; J3010; J2704; J2001

== ENCOUNTER → 2022-10-30 | Outpatient (CLI) | payer BC ==
[2022-10-30 17:06] LABS: Basophils # (A) 0.02 X 10*3/uL (0.00-0.10); Basophils % (A) 0.5 %; Eosinophils % (A) 2.6 %; HCT 42.4 % (37.2-46.3); HGB 13.9 d/dL (12.0-15.0); Lymphocytes # (A) 0.99 X 10*3/uL (0.90-5.00); Lymphocytes % (A) 25.4 %; MCH 30.5 pg (27.0-32.0); MCHC 32.8 d/dL (32.0-37.0); MCV 93.2 FL (80.0-97.0); Mean Platelet Volume 11.4 FL (9.5-12.2); Monocytes # (A) 0.25 X 10*3/uL (0.20-1.00); Monocytes % (A) 6.4 %; NRBC Per 100 WBC 0 X 10*3/uL (0.00-0.01); Neutrophils # (A) 2.52 X 10*3/uL (1.80-7.70); Neutrophils % (A) 64.8 %; Platelet Count 231 X 10*3/uL (140-440); RBC 4.55 X 10*6/uL (4.10-5.20); WBC 3.89 X 10*3/uL (4.50-10.00)
== END | disposition home or self-care (01) ==
LOC: LABPAT 09:10
PROVIDERS: ATTEND Surgery Plastic and Reconstructive Surgery
DX: Z01.812 Encounter for preprocedural laboratory examination (principal); K44.0 Diaphragmatic hernia with obstruction, without gangrene
CPT/HCPCS: 85025

== ENCOUNTER 2022-10-31 10:31 | Day surgery (SDC) | payer BC ==
--- NOTE | 2022-10-31 06:57 | P.GSHP ---
History of Present Illness H&P Date: 10/31/22 CHIEF COMPLAINT: Paraesophageal hiatal hernia with gastroesophageal reflux disease. HISTORY OF PRESENT ILLNESS: The patient is a 47-year-old female who presents with symptomatic paraesophageal hiatal hernia over one year with gastroesophageal reflux disease. She has completed upper endoscopy workup. Now she presents for surgical intervention. PAST MEDICAL HISTORY: Please see list. PAST SURGICAL HISTORY: Please see list. MEDICATIONS: Please see list. ALLERGIES: Please see list. SOCIAL HISTORY: No illicit drug use FAMILY HISTORY: No reports of Crohn disease or ulcerative colitis. REVIEW OF ORGAN SYSTEMS: CONSTITUTIONAL: No reports of fevers or chills. GI: Denies any blood in stools or constipation. PHYSICAL EXAM: VITAL SIGNS: Stable GENERAL: Well-developed pleasant and in no acute distress. HEENT: No scleral icterus. Extraocular movements grossly intact. Moist buccal mucosa. NECK: Supple without lymphadenopathy. CHEST: Unlabored respirations. Equal bilateral excursions. CARDIOVASCULAR: Regular rate and rhythm. Distal 2+ pulses. ABDOMEN: Soft, nondistended. No peritoneal signs. MUSCULOSKELETAL: No clubbing, cyanosis, or edema. SKIN: Well-perfused. Good skin turgor. REPORTS: Upper endoscopy demonstrates paraesophageal hiatal hernia REPORTS: Cardiology risk assessment obtained. Please see chart. ASSESSMENT: 1. Diaphragmatic paraesophageal hiatal hernia with severe gastroesophageal reflux disease. PLAN: 1. Recommend proceeding with a robotic paraesophageal hiatal hernia with possible mesh. 2. Benefits and risks of surgical intervention was discussed including possibility of open technique. 3. Inpatient hospitalization recommended of 2 nights 4. DVT prophylaxis. 5. Antibiotic prophylaxis. 6. She has also completed a very low caloric high-protein diet to address underlying hepatomegaly. 7. Non narcotic pain management including abdominal wall block described 8. Blood sugar glucose described. 9. Weight loss management described. Past Medical History Past Medical History: Asthma, GERD/Reflux Additional Past Medical History / Comment(s): FEELING PRESSURE IN UPPER ABD, BLOATING. MASS FOUND ON LIVER-PHYSICIAN WATCHING. History of Any Multi-Drug Resistant Organisms: None Reported Past Surgical History: Section, Cholecystectomy, Tubal Ligation Additional Past Surgical History / Comment(s): EGD. Section X2. COLONOSCOPY Past Anesthesia/Blood Transfusion Reactions: No Reported Reaction Smoking Status: Never smoker - Past Family History Mother Family Medical History: Asthma, COPD Additional Family Medical History / Comment(s): Maternal aunt had breast cancer. Cousin had thyroid cancer. Father Family Medical History: Thyroid Disorder Medications and Allergies Home Medications Medication Instructions Recorded Confirmed Type Albuterol Sulfate [Proair 1 puff INHALATION Q6H PRN 10/30/22 10/30/22 History Respiclick] Allergies Allergy/AdvReac Type Severity Reaction Status Date / Time amoxicillin Allergy Rash/Hives Verified 10/30/22 08:16 nitrofurantoin Allergy Nausea & Verified 10/30/22 08:16 [From Macrobid] Vomiting Sulfa (Sulfonamide Allergy Rash/Hives Verified 10/30/22 08:16 Antibiotics)
[~2022-10-31 10:31] MED LIST changes: +ACETAMINOPHEN TAB 500 MG TAB PO PRN; +HEPARIN SODIUM,PORCINE/PF 5,000 UNIT/0.5 ML SYRINGE SQ PRN; -LACTATED RINGERS 1,000 ML IV SCH; -LIDOCAINE 1% (10MG/ML) FOR IV START INTRADERMA PRN; -LIDOCAINE 2% INJ 20 MG/ML (2 ML VIAL) ONE; -MIDAZOLAM 2 MG/2 ML VIAL ONE; +ONDANSETRON 4 MG/2 ML VIAL IVP PRN; -PROPOFOL 10 MG/ML 20 ML VIAL IV ONE; -fentaNYL (PF) 50 MCG/ML 2 ML AMP ONE
[2022-10-31] MEDS ORDERED: HYDROmorphone 0.5 MG/0.5 ML SYRINGE IVP PRN (10:45)
[2022-10-31] MEDS ORDERED: SCOPOLAMINE 1 MG/72 HR PATCH TRANSDERM STA (10:45)
[2022-10-31] MEDS ORDERED: MIDAZOLAM 2 MG/2 ML VIAL IV PRN (10:45)
[2022-10-31] MEDS: LACTATED RINGERS 1,000 ML IV SCH (10:55)
[2022-10-31 11:21] LABS: Basophils % (A) 1 %; Eosinophils # (A) 0.1 k/uL (0-0.7); Eosinophils % (A) 4 %; HCT 40.9 % (34.0-46.0); HGB 13.9 gm/dL (11.4-16.0); Lymphocytes % (A) 29 %; MCH 31.1 pg (25.0-35.0); MCV 91.5 fL (80.0-100.0); Mean Platelet Volume 8.2; Monocytes # (A) 0.2 k/uL (0-1.0); Monocytes % (A) 4 %; Neutrophils # (A) 2.2 k/uL (1.3-7.7); Neutrophils % (A) 61 %; Platelet Count 229 k/uL (150-450); RBC 4.47 m/uL (3.80-5.40); RDW 12.4 % (11.5-15.5); WBC 3.6 k/uL (3.8-10.6)
[2022-10-31] MEDS ORDERED: PROPOFOL 10 MG/ML 20 ML VIAL IV ONE (11:26)
[2022-10-31] MEDS ORDERED: ROCURONIUM 10 MG/ML (5 ML VIAL) IV ONE (11:26)
[2022-10-31] MEDS ORDERED: PHENYLEPHRINE-0.9% NACL SYG 1,000 MCG/10 ML SYRINGE ONE (11:26)
[2022-10-31] MEDS ORDERED: GLYCOPYRROLATE 0.2 MG/ML 2 ML VIAL ONE (11:26)
[2022-10-31] MEDS ORDERED: ePHEDrine 50 MG/ML 1 ML VIAL ONE (11:26)
[2022-10-31] MEDS ORDERED: MIDAZOLAM 2 MG/2 ML VIAL ONE (11:26)
[2022-10-31] MEDS ORDERED: fentaNYL (PF) 50 MCG/ML 2 ML AMP ONE (11:26)
[2022-10-31] MEDS ORDERED: NEOSTIGMINE 1 MG/ML 10 ML VIAL ONE (11:26)
[2022-10-31] MEDS ORDERED: LIDOCAINE 2% INJ 20 MG/ML (2 ML VIAL) ONE (11:26)
[2022-10-31] MEDS ORDERED: SUCCINYLCHOLINE CHLORIDE 200 MG/10 ML VIAL IV ONE (11:26)
[2022-10-31 11:53] LABS: ALT 26 U/L (4-34); AST 29 U/L (14-36); African American GFR (CKD) >90 (>60 ml/min/1.73 sqM); Albumin 4.4 g/dL (3.5-5.0); Alkaline Phosphatase 94 U/L (38-126); Anion Gap 14 mmol/L; Blood Urea Nitrogen 15 mg/dL (7-17); Calcium 9.2 mg/dL (8.4-10.2); Carbon Dioxide 21 mmol/L (22-30); Chloride 105 mmol/L (98-107); Glucose 91 mg/dL (74-99); Non-African American GFR(CKD) >90 (>60 ml/min/1.73 sqM); Sodium 140 mmol/L (137-145); Total Bilirubin 0.9 mg/dL (0.2-1.3); Total Protein 7.3 g/dL (6.3-8.2)
[2022-10-31] MEDS ORDERED: BUPIVACAINE (PF) 0.25% 30 ML VIAL SQ ONE ×2 (11:57→12:06)
[2022-10-31] MEDS ORDERED: HYDROmorphone 1 MG/ML 1 ML SYRINGE IVP PRN (13:24)
[2022-10-31] MEDS ORDERED: LACTATED RINGERS 1,000 ML IV ONE (14:30)
[2022-10-31] MEDS: METOCLOPRAMIDE 5 MG/ML 2 ML VIAL IVP SCH (17:47)
--- NOTE | 2022-10-31 18:13 | P.OP ---
Date of Procedure: 10/31/22 Description of Procedure: SURGEON: GUIDO MUNOZ MD PREOPERATIVE DIAGNOSES: 1. Symptomatic paraesophageal diaphragmatic hiatal hernia. 2. Gastroesophageal reflux disease. 3. Asthma 4. Obesity due to excess calories, BMI 31.8 POSTOPERATIVE DIAGNOSES: 1. Paraesophageal midline diaphragmatic hernia, 5 x 4 cm without incarceration. 2. Gastroesophageal reflux disease. 3. Asthma 4. Obesity due to excess calories, BMI 31.8 OPERATION: 1. Robotic-assisted da Leslie Xi laparoscopic repair of initial paraesophageal hiatal hernia, 5 x 4 cm, with [place] Biopatch A 8 x 8 cm. 2. Intraoperative esophagogastroduodenoscopy 3. Placement of 56-Tanzanian bougie ANESTHESIA: General with local anesthetic. ESTIMATED BLOOD LOSS: 5 mL SPECIMENS REMOVED: None COMPLICATIONS: None. Condition: stable Disposition: floor FINDINGS: 1. Midline reducible paraesophageal hiatal hernia 5 x 4 cm 2. Intraoperative upper endoscopy confirms complete closure of hiatal hernia from Hill grade 4 to Hill grade 1 3. Intraesophageal length over 2 cm INDICATIONS: The patient is a 47-year-old female who presents with gastroesophageal reflux disease poorly controlled despite medications, and a symptomatic diaphragmatic hiatal hernia. Preoperative workup including upper endoscopy demonstrated a sliding hiatal hernia. Given the severity of symptoms, the patient had elected for surgical intervention. Benefits and risks including bleeding, infection, recurrence, dysphagia, injury to the lung, need for further surgery was described at length. Informed consent was obtained. DESCRIPTION: The patient was brought into the operating room and placed in supine position. Preoperatively the patient had received heparin subcutaneously for DVT prophylaxis. After general induction, the abdomen was prepped and draped in standard sterile fashion. The patient had previously voided prior to coming to the operating room. Ioban draping was placed along the abdomen. A timeout protocol was confirmed with the surgical team, for which the patient's name, procedure to be performed including DVT prophylaxis with bilateral SCDs, and preoperative antibiotics were also confirmed. A robotic da Leslie Xi system was prepped and primed. At 12 cm from the xiphoid to just below the umbilicus, proposed port sites were marked with indelible marker along the left axillary line, left mid-clavicular line with each ports were marked 10 cm from each other. A 5 mm 0 degrees laparoscopic trocar entry was performed along the left upper quadrant. The abdomen was insufflated to 15 mmHg pressure was tolerated well. Diagnostic laparoscopy demonstrated no injury to bowel, viscera, or mesentery. No injury had occurred to the small bowel or viscera. The liver was smooth consistent with two-week high-protein low-carb diet. Previous trochar sites from cholecystectomy were used. Next, one 8 mm robotic p ort was placed along the right upper abdomen. An 8-mm port was were placed along the right lateral lateral abdominal wall. The camera 8-mm port was maintained along the epigastrium. Another 12 mm port was placed along the left upper abdominal wall after exchanging the 5 mm port. Please note that the ports were placed at least 20 cm away from the target anatomy. Care was taken to check that each robotic arm were safely away from collision with the bed or the patient. At the epigastrium, a medium sized Salty liver retractor was placed under direct visualization with the Iron Plumber'S Assistant placed under the right shoulder of the patient. All robotic arms were used. The patient was repositioned in reverse Trendelenburg position at 21-degrees after lowering the bed. The robot was docked above the right side of the patient. Using a grasper for arm 3, a grasper for arm 1, including vessel sealer for arm 2, the robotic system was docked and primed as described. Instruments were interchange d by the care assistant. I had sat at the console. The gastrohepatic ligament was cleaved using a vessel sealer. Next, the phrenoesophageal ligament was mobilized and the distal esophagus was mobilized circumferentially. The left and right crura was identified. Circumferentially, the hernia sac was excised and brought into the peritoneal cavity. Moderate dissection into the mediastinum was perfor med to release the esophagus into the abdominal cavity. The paraesophageal hiatal hernia sac was also incised and divided from the esophagus. Care was taken to avoid any gastrotomy. The measured defect was consistent with 5 cm axial length and 4 cm in width. After dissection, the distal esophagus of 2+ cm was brought into the abdominal cavity. Once the hiatus and crura was dissected, 2-0 VLOC nonabsorbable suture was placed to reapproximate the diaphragmatic hiatus posteriorly. To buttress the repair, a [place] Biopatch A was prepared along the back table and cut in half of a barron-hole fashion as to reinforce the repair as an underlay. The mesh was placed along the crural repair and tagged using horizontal mattress sutures using 2-0 VLOC. I went to the head of the bed to perform intraoperative esophagogastroduodenoscopy and placement of a 56Fr bougie. The bougie was passed along the posterior oropharynx into the stomach to address pre-existing esophageal dysmotility for 2 minutes then removed. An Olympus gastroscope was passed through posterior oropharynx. Retroflexion of the scope confirmed a Hill grade 1 lower esophageal valve. Lower esophageal sphincter at 34 cm from the incisors. Presence of erosive esophagitis, LA grade C. The stomach had been desufflated. No evidence of leaks were found of the esophagus or stomach. The GI tract with desufflated This concluded the endoscopic portion of the case. The robot was undocked from the patient. I re-scrubbed into the case. All instruments and pneumoperitoneum and specimens were evacuated from the abdominal cavity. Incisions were reapproximated using 4-0 Monocryl in an interrupted subcuticular fashion. Liquid glue was applied to the skin. Local anesthetic was infiltrated in all wounds for postop analgesia. At the end of the procedure, needle, sponge, and instrument count was verified correct by the surgical appliances salesperson. The patient had tolerated the procedure well and was taken to the postanesthesia unit in stable condition.
[2022-10-31] MEDS: HEPARIN SODIUM,PORCINE/PF 5,000 UNIT/0.5 ML SYRINGE SQ SCH (21:01)
[2022-10-31] MEDS: ONDANSETRON 4 MG/2 ML VIAL IVP SCH (21:01)
[2022-10-31] MEDS: D5-0.45% NACL WITH KCL 20MEQ/L 1,000 ML IV SCH (21:01)
[2022-11-01] MEDS: METOCLOPRAMIDE 5 MG/ML 2 ML VIAL IVP SCH ×5 (00:18→23:27)
[2022-11-01] MEDS: D5-0.45% NACL WITH KCL 20MEQ/L 1,000 ML IV SCH ×4 (00:19→21:03)
[2022-11-01] MEDS: ONDANSETRON 4 MG/2 ML VIAL IVP SCH ×4 (03:36→21:02)
[2022-11-01] MEDS: HEPARIN SODIUM,PORCINE/PF 5,000 UNIT/0.5 ML SYRINGE SQ SCH ×2 (10:20→21:02)
--- NOTE | 2022-11-01 10:54 | P.DS ---
Providers Expected date of discharge: 11/01/22 Attending physician: Linda Ha Consults: 10/31/22 06:57 Consult Physician Routine Consulting Provider: [facility] Consult Reason/Comments: [facility] Do you want consulting provider notified?: Yes Primary care physician: Jb Aguilar [facility] Hospital Course: 47-year-old female underwent robotic repair hiatal hernia yesterday. Doing well today. Had some nausea and pain last night but that is resolved. Official report on the upper GIs pending however I saw the radiologist this morning and also reviewed her films myself. No evidence of leak or obstruction is seen. Patient would like to go home today. Will begin clear liquids. Will plan discharge of tolerates. Abdomen soft nondistended with minimal tenderness, incisions clean and dry Plan - Discharge Summary Discharge Rx Participant: No New Discharge Prescriptions: New Simethicone 40 mg/0.6 ml Drops [Mylicon Drops] 40 mg PO PCHS PRN #30 ml PRN Reason: Gas bisacodyL [Dulcolax] 5 mg PO DAILY PRN #10 tab PRN Reason: Constipation Ondansetron Odt [Zofran Odt] 4 mg PO Q8HR PRN #9 tab PRN Reason: Nausea Acetaminophen Tab [Tylenol Tab] 1,000 mg PO Q6HR PRN #30 tablet PRN Reason: Pain Continue Albuterol Sulfate [Proair Respiclick] 1 puff INHALATION Q6H PRN PRN Reason: Wheezing Discharge Medication List Albuterol Sulfate [Proair Respiclick] 1 puff INHALATION Q6H PRN 10/30/22 [History] Acetaminophen Tab [Tylenol Tab] 1,000 mg PO Q6HR PRN #30 tablet 10/31/22 [Rx] Ondansetron Odt [Zofran Odt] 4 mg PO Q8HR PRN #9 tab 10/31/22 [Rx] Simethicone 40 mg/0.6 ml Drops [Mylicon Drops] 40 mg PO PCHS PRN #30 ml 10/31/22 [Rx] bisacodyL [Dulcolax] 5 mg PO DAILY PRN #10 tab 10/31/22 [Rx] Follow up Appointment(s)/Referral(s): Linda Ha MD [STAFF PHYSICIAN] - 11/05/22 (TELEHEALTH - DR WILL CALL YOU BETWEEN 8 am to 8 pm) Patient Instructions/Handouts: Hiatal Hernia (DC) Activity/Diet/Wound Care/Special Instructions: Liquid diet only for 2 weeks until November 14 No lifting over 4 pounds in 4 weeks, November 30 May shower No soaking in bath tubs for 2 weeks, November 14 Please notify your surgeon if you develop nausea and vomiting including new onset of abdominal pain. Please ambulate at all times. Use Simethicone, Gas-X, Tylenol and ibuprofen or Aleve scheduled for the next 24-48 hours for best pain relief. Use ice along incisions for the today to prevent swelling. Please open, cut, crush pills larger than the size of a tic tack No carbonated beverages. No straws. Do not remove scopolamine patch for 3 days, if present Avoiding Gas Avoid drinking through a straw. Do not chew gum or tobacco. These actions cause you to swallow air, which produces excess gas in your stomach. Chew with your mouth closed. Avoid any foods that cause stomach gas and distention. These foods include corn, dried beans, peas, lentils, onions, broccoli, cauliflower and any food from the cabbage family. Avoid carbonated drinks, alcohol, citrus and tomato products. Carbonated drinks (sodas) are not allowed for the first six to eight weeks after surgery. After this time you can try them again in small amounts Clear Liquid Diet The first diet after surgery is the clear liquid diet. It includes the following liquids: Apple juice Cranberry juice Grape juice Chicken broth Beef broth Flavored gelatin (Jell-O) Decaf tea and coffee Caffeinated beverages are permitted based on tolerance Popcles Tamazight ice Full Liquid Diet The full liquid diet contains anything on the clear liquid diet, plus: Milk, soy, rice and almond (no chocolate) Cream of wheat, cream of rice, grits Strained creamed soups (no tomato or broccoli) Vanilla and strawberry-flavored ice cream Sherbet Blended, custard styled or whipped yogurt (plain or vanilla only) Vanilla and butterscotch pudding (no chocolate or coconut) Nutritional drinks including Ensure, Boost, Peck Instant Breakfast (no chocolate-flavored) Note: Dairy products, such as milk, ice cream and pudding, may cause diarrhea in some people just after surgery. You may need to avoid milk products. If so, substitute them with lactose-free beverages, such as soy, rice, Lactaid or almond milks. Discharge Disposition: HOME SELF-CARE
--- NOTE | 2022-11-01 11:42 | FL ---
EXAMINATION TYPE: FL esophagus cervic/pharynx DATE OF EXAM: 11/01/2022 COMPARISON: None HISTORY: Postsurgical hiatal hernia repair TECHNIQUE: A single contrast Limited UGI study is performed. FINDINGS: Contrast passes from the distal esophagus through the gastroesophageal junction with mild h esitancy. No extravasation of contrast is evident. No free air is noted during this examination. Overhead radiographs were obtained which are unremarkable. Fluoroscopy time: 45 seconds. Images: 11 IMPRESSIONS: 1. Unremarkable post hiatal hernia surgery without obstruction or hesitancy of passage through the ga stroesophageal junction. No extravasation.
[2022-11-01 12:19] VITALS: BMI 31.8
[2022-11-01] MEDS: LACTATED RINGERS 1,000 ML IV SCH (12:35)
[2022-11-01 14:38] LABS: Basophils % (A) 0 %; Eosinophils # (A) 0.1 k/uL (0-0.7); Eosinophils % (A) 3 %; HGB 12.2 gm/dL (11.4-16.0); Lymphocytes # (A) 0.8 k/uL (1.0-4.8); Lymphocytes % (A) 18 %; MCH 31.8 pg (25.0-35.0); MCHC 33.9 g/dL (31.0-37.0); MCV 93.9 fL (80.0-100.0); Mean Platelet Volume 9.5; Monocytes # (A) 0.3 k/uL (0-1.0); Monocytes % (A) 6 %; Neutrophils # (A) 3.4 k/uL (1.3-7.7); Neutrophils % (A) 72 %; Platelet Count 179 k/uL (150-450); RBC 3.83 m/uL (3.80-5.40); RDW 12.5 % (11.5-15.5); WBC 4.8 k/uL (3.8-10.6)
[2022-11-01] MEDS: ACETAMINOPHEN TAB 325 MG TAB PO PRN ×2 (16:13→21:09)
[2022-11-01] MEDS: IBUPROFEN 600 MG TAB PO PRN (17:59)
[2022-11-01 18:33] VITALS: RESP 16
[2022-11-02] MEDS: ONDANSETRON 4 MG/2 ML VIAL IVP SCH ×2 (04:03→08:52)
[2022-11-02] MEDS: D5-0.45% NACL WITH KCL 20MEQ/L 1,000 ML IV SCH (04:58)
[2022-11-02] MEDS: METOCLOPRAMIDE 5 MG/ML 2 ML VIAL IVP SCH ×2 (05:06→13:39)
[2022-11-02 08:44] VITALS: BP 99/64; PULSE 63; TEMP 97.7
[2022-11-02] MEDS: IBUPROFEN 600 MG TAB PO PRN (08:51)
[2022-11-02] MEDS: HEPARIN SODIUM,PORCINE/PF 5,000 UNIT/0.5 ML SYRINGE SQ SCH (08:52)
--- NOTE | 2022-11-02 11:26 | P.PN ---
Progress Note - Text Progress Note Date: 11/02/22 Patient doing well today. She was Last night because her pain was a little higher than we were comfortable with for discharge. Today doing well. Pain is down to 1-2 out of 10. Tolerating liquids. May discharge. Follow-up with Dr. Rayomnd.
[2022-11-02] MEDS: LACTATED RINGERS 1,000 ML IV SCH (13:39)
== END 2022-11-02 13:35 | disposition home or self-care (01) ==
LOC: OR 10:31 → 5NMEDONC 13:15 → OR 11-02 13:35
PROVIDERS: ATTEND Surgery Plastic and Reconstructive Surgery
DX: K44.9 Diaphragmatic hernia without obstruction or gangrene (principal); K21.9 Gastro-esophageal reflux disease without esophagitis; J45.909 Unspecified asthma, uncomplicated; E66.09 Other obesity due to excess calories; Z68.31 Body mass index [BMI] 31.0-31.9, adult; Z98.891 History of uterine scar from previous surgery; Z90.49 Acquired absence of other specified parts of digestive tract; Z98.51 Tubal ligation status; Z98.890 Other specified postprocedural states; Z80.3 Family history of malignant neoplasm of breast; Z83.49 Family history of other endocrine, nutritional and metabolic diseases; Z79.51 Long term (current) use of inhaled steroids; Z79.899 Other long term (current) drug therapy; Z88.1 Allergy status to other antibiotic agents; Z88.2 Allergy status to sulfonamides
CPT/HCPCS: 43282; 80053; 85025 ×2; 74210; J2765 ×3; J0690 ×2; J2405 ×3; J1170 ×2; Q9967; J1644 ×3; 81025